=== PATIENT | female | born 1965 | race Caucasian/White ===

== ENCOUNTER 2021-07-19 10:14 | Emergency (ER) | payer SELFPAY ==
[2021-07-19 10:46] VITALS: BP 117/74; PULSE 67
[2021-07-19] MEDS ORDERED: methylPREDNISolone Sodium Succinate 125 MG/2 ML SDV IM ONE (10:58)
[2021-07-19] MEDS ORDERED: Orphenadrine 60 MG/2 ML Inj IM ONE (10:59)
== END 2021-07-19 13:11 | disposition home or self-care (01) ==
LOC: DL.ED 10:14
DX: M47.16 Other spondylosis with myelopathy, lumbar region (principal); M47.14 Other spondylosis with myelopathy, thoracic region; M62.830 Muscle spasm of back; E66.9 Obesity, unspecified; Z88.0 Allergy status to penicillin; Z88.1 Allergy status to other antibiotic agents; Z87.891 Personal history of nicotine dependence; Z68.34 Body mass index [BMI] 34.0-34.9, adult
CPT/HCPCS: 72100; 81003; 96372; 99283-25; 99284; J2360; J2930

== ENCOUNTER 2025-02-20 13:41 | Emergency (ER) | payer OTHER ==
[2025-02-20 14:54] VITALS: BP 137/76; PULSE 60
[2025-02-20] MEDS: Lactulose Soln 10 GM/15 ML 30 ML UD Cup PO ONE (15:14)
== END 2025-02-20 15:15 | disposition home or self-care (01) ==
LOC: DL.ED 13:41
DX: K59.00 Constipation, unspecified (principal); E66.9 Obesity, unspecified; Z68.33 Body mass index [BMI] 33.0-33.9, adult; Z86.16 Personal history of COVID-19; Z88.0 Allergy status to penicillin; Z88.1 Allergy status to other antibiotic agents; Z88.8 Allergy status to other drugs, medicaments and biological substances; Z91.018 Allergy to other foods; Z79.899 Other long term (current) drug therapy
CPT/HCPCS: 74018; 99284; A9270; 99283